=== PATIENT | male | born 1980 | race Caucasian/White ===

== ENCOUNTER 2018-03-30 12:17 | Outpatient (CLI) | payer OTHER ==
[2018-03-30] MEDS ORDERED: OMNIPAQUE 350 MG/ML, 100ML BOTTLE ONE (15:55)
== END 2018-03-30 23:59 | disposition home or self-care (01) ==
LOC: CFH 12:17
PROVIDERS: ATTEND Nurse Practitioner Family
DX: J34.1 Cyst and mucocele of nose and nasal sinus (principal); R59.1 Generalized enlarged lymph nodes
CPT/HCPCS: 70491; Q9967